=== PATIENT | male | born 1940 | race Caucasian/White ===

== ENCOUNTER 2017-09-25 13:56 | Outpatient (CLI) ==
--- NOTE | 2017-09-25 15:30 | DI ---
EXAM: Chest two view, frontal and lateral views. HISTORY: Emphysema. COMPARISON: 06/18/2009. FINDINGS: The heart size is normal. Atherosclerotic calcifications are present. There is no pulmon yvan vascular congestion. The lungs are hyperexpanded but clear. No pleural effusion or pneumothorax is seen. No acute osseous abnormality identified. IMPRESSION: No acute cardiopulmonary process.
== END 2017-09-25 13:57 | disposition home or self-care (01) ==
LOC: RAD 13:56
PROVIDERS: ATTEND Family Medicine
DX: J43.9 Emphysema, unspecified (principal)